=== PATIENT | female | born 1940 | race African-American/Black ===

== ENCOUNTER → 2016-05-22 | Outpatient (CLI) | payer MEDICARE, MEDICAID | LOC: SP 10:57 | PROVIDERS: ATTEND Specialist | DX: I82.449 Acute embolism and thrombosis of unspecified tibial vein (principal) | CPT/HCPCS: 93971 ==

== ENCOUNTER 2016-06-25 08:54 | Day surgery (SDC) | payer MEDICARE, MEDICAID ==
[~2016-06-25 08:54] MED LIST: PROPOFOL INJ 200 MG/20 ML VIAL IV ONE
[2016-06-25] MEDS ORDERED: SIMETHICONE 80 MG TAB.CHEW ONE (10:52)
[2016-06-25 11:22] VITALS: BP 91/65
--- NOTE | 2016-06-25 13:49 | Operative Report ---
Operative Report DATE OF SURGERY: 06/25/16 Operative Report: The risks, benefits and alternatives of the procedure including risks of bleeding, perforation requiring surgery are explained to the patient detail and informed consents obtained. Patient is brought back to the endoscopy suite and placed in a left, lateral decubital position. Timeout is called. Propofol medications administered. A rectal examination was done which did not reveal any masses, tears or fissures. An Olympus videoscope was inserted into the patient's rectum. The scope was then gradually advanced all the way to the cecum. The cecum was identified by the usual anatomical landmarks including the ileocecal valve as well as the appendiceal office. Photodocumentation is obtained. Prep is good. Scope was then sequentially pulled back via the various segments of the colon including the ascending colon, hepatic flexure transverse colon, splenic flexure, descending colon and finally into the rectosigmoid portions of the colon. Retroflexion maneuvers performed. The risks benefits and alternatives of the procedure explained to the patient in detail and informed consent is obtained that GIF Olympus video scope was inserted into the patient's mouth and hypopharynx the esophagus is identified intubated and insufflated the scope was then advanced through the esophagus stomach and duodenum retroflexion maneuver is done the esophagus stomach and first and second portions of the duodenum examined PREOPERATIVE DIAGNOSIS: Change of bowel habits. Rectal cancer screening. Nausea vomiting, dyspepsia POSTOPERATIVE DIAGNOSIS: Gastritis status post biopsy rule out Helicobacter pylori. Internal hemorrhoids. Mild right-sided mucosal inflammation status post biopsy rule out collagenous, microscopic, lymphocytic colitis. OPERATION: Colonoscopy with biopsy. EGD with biopsy SURGEON: JANETT JOLLY ANESTHESIA: LMAC TISSUE REMOVED OR ALTERED: Mucosal specimens obtained as described above. COMPLICATIONS: None. ESTIMATED BLOOD LOSS: none. INTRAOPERATIVE FINDINGS: No masses, AVMs or diverticulosis noted. Internal hemorrhoids are visualized. No gastric ulcers or masses noted. PROCEDURE: Patient tolerated the procedure well. No immediate postprocedure complications are noted. Patient is discharged in good condition. Discharge date 06/25/2016. Discharge diet: Regular. Discharge activity: Regular. 2-3 follow-up to discuss findings. Patient is instructed to call the office or proceed to the emergency room should there be any further problems or questions We'll await on biopsies
== END 2016-06-25 11:30 | disposition home or self-care (01) ==
LOC: END 08:54
PROVIDERS: ATTEND Internal Medicine Gastroenterology
PROC: 0DB68ZX Excision of Stomach, Via Natural or Artificial Opening Endoscopic, Diagnostic (ICD-10-PCS; principal; 2016-06-25 11:00)
PROC: 0DBF8ZX Excision of Right Large Intestine, Via Natural or Artificial Opening Endoscopic, Diagnostic (ICD-10-PCS; 2016-06-25 11:00)
DX: K29.50 Unspecified chronic gastritis without bleeding (principal); K52.9 Noninfective gastroenteritis and colitis, unspecified; K64.8 Other hemorrhoids; C91.10 Chronic lymphocytic leukemia of B-cell type not having achieved remission; Z86.73 Personal history of transient ischemic attack (TIA), and cerebral infarction without residual deficits; Z79.899 Other long term (current) drug therapy; Z88.5 Allergy status to narcotic agent
CPT/HCPCS: 43239; 45380; 88342 ×2; 88305 ×2; A9270; J2704; 740

== ENCOUNTER → 2016-12-07 | Outpatient (CLI) | payer MEDICARE, MEDICAID ==
[2016-12-07 13:50] LABS: APPEARANCE,URINE SLIGHTLY-CLOUDY; BILIRUBIN,URINE NEGATIVE (NEGATIVE); GLUCOSE, URINE NEGATIVE (NEGATIVE); KETONES,URINE TRACE mg/dL (NEGATIVE); LEUKOCYTE ESTERASE,URINE SMALL (NEGATIVE); NITRITE,URINE NEGATIVE (NEGATIVE); PROTEIN,URINE NEGATIVE (NEGATIVE); URINE SPECIFIC GRAVITY 1.032
[2016-12-07 13:59] LABS: HEMATOCRIT 35.7 % (36.0-47.0); HEMOGLOBIN 12.4 g/dL (12.0-15.5); HGB HCT DIFFERENCE 1.5; MEAN CORPUSCULAR HEMOGLOBIN 33.4 pg (27.0-33.4); MEAN CORPUSCULAR HGB CONC 34.8 g/dL (32.0-36.0); MEAN CORPUSCULAR VOLUME 96 fl (80-97); RED BLOOD COUNT 3.72 10^6/uL (3.72-5.28); RED CELL DISTRIBUTION WIDTH 13.8 % (11.5-14.0); WHITE BLOOD COUNT 19.2 10^3/uL (4.0-10.5)
--- NOTE | 2016-12-07 14:00 | RADIOLOGY REPORT (SQ) ---
EXAM DESCRIPTION: CHEST PA/LATERAL COMPLETED DATE/TIME: 12/07/2016 12:53 pm REASON FOR STUDY: PRE OP COMPARISON: None. EXAM PARAMETERS: NUMBER OF VIEWS: two views TECHNIQUE: Digital Frontal and Lateral radiographic views of the chest acquired. RADIATION DOSE: NA LIMITATIONS: none FINDINGS: LUNGS AND PLEURA: No opacities, masses or pneumothorax. No pleural effusion. MEDIASTINUM AND HILAR STRUCTURES: No masses or contour abnormalities. HEART AND VASCULAR STRUCTURES: Heart normal size. No evidence for failure. BONES: Osteoporotic, with T6 or T7 50% compression deformity. Old healed right lateral 6th rib fract ure HARDWARE: Right-sided permanent central line tip superior vena cava. Clips right upper quadrant post cholecystectomy. Inferior vena cava filter at the inferior edge of the field of view OTHER: No other significant finding. IMPRESSION: No acute findings. TECHNICAL DOCUMENTATION: JOB ID: [id number] [employer]- All Rights Reserved
[2016-12-07 14:11] LABS: ANION GAP 14 (5-19); BLOOD UREA NITROGEN 20 mg/dL (7-20); CALCIUM 9.8 mg/dL (8.4-10.2); CARBON DIOXIDE 22 mmol/L (22-30); CHLORIDE 107 mmol/L (98-107); CREATININE RESULT 1.03 mg/dL (0.52-1.25); GLUCOSE 135 mg/dL (75-110); POTASSIUM 4.3 mmol/L (3.6-5.0); SODIUM 143.1 mmol/L (137-145)
[2016-12-07 14:35] LABS: BASOPHILS % (MANUAL) 0 % (0-2); EOSINOPHILS % (MANUAL) 2 % (0-6); TOTAL CELLS COUNTED 100
[2016-12-07 14:39] LABS: RBC MORPHOLOGY COMMENT NORMO-CYTIC/CHROMIC; SMUDGE CELLS PRESENT
[2016-12-07 14:41] LABS: LYMPHOCYTES % (MANUAL) 78 % (13-45)
--- NOTE | 2016-12-07 22:56 | EKG REPORT ---
SEVERITY:- BORDERLINE ECG - SINUS RHYTHM BORDERLINE INFERIOR Q WAVES : Confirmed by: Tommie Allison 07-Dec-2016 22:56:30
[2016-12-10 16:28] LABS: PATH REVIEW PATHOLOGIST REVIEWED
== END ==
LOC: OD 12:09
PROVIDERS: ATTEND Orthopaedic Surgery
DX: Z01.818 Encounter for other preprocedural examination (principal)
CPT/HCPCS: 36415; 71020; 80048; 81001; 85025; 93005; 93010